=== PATIENT | male | born 1970 | race Caucasian/White ===

== ENCOUNTER → 2024-05-07 07:29 | Outpatient (REF) | payer BC, SELFPAY | LOC: EMG 07:29 | PROVIDERS: ATTENDING PHYSICIAN Podiatrist Foot & Ankle Surgery; FAMILY PHYSICIAN Family Medicine | DX: E11.9 Type 2 diabetes mellitus without complications (principal); M79.2 Neuralgia and neuritis, unspecified; R20.0 Anesthesia of skin | CPT/HCPCS: 95886; 95911 ==

== ENCOUNTER 2025-03-07 11:18 | Emergency (ER) | payer BC, SELFPAY ==
[2025-03-07 11:24] VITALS: BP 141/94
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
[2025-03-07 12:46] VITALS: BMI 36.0
--- NOTE | 2025-03-07 12:51 | EDRN ---
Jabari BERNAL in room w/pt.
[2025-03-07 13:27] VITALS: BP 115/79
[2025-03-07] MEDS: ADACEL 0.5 ML IM (13:34)
[2025-03-07] MEDS: PERCOCET 5/325 1 TABLET PO (13:35)
--- NOTE | 2025-03-07 14:15 | EDRN ---
Jabari BERNAL in room w/ pt.
--- NOTE | 2025-03-07 14:20 | EDRN ---
Jabari BERNAL was in room at this time and cleansed and dressed all wounds then discharged pt.
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
== END 2025-03-07 14:45 | disposition home or self-care (01) ==
LOC: EMR 11:18
PROVIDERS: EMERGENCY PHYSICIAN Emergency Medicine; FAMILY PHYSICIAN Family Medicine
DX: T22.212A Burn of second degree of left forearm, initial encounter (principal); T20.16XA Burn of first degree of forehead and cheek, initial encounter; T31.0 Burns involving less than 10% of body surface; X02.8XXA Other exposure to controlled fire in building or structure, initial encounter; S80.811A Abrasion, right lower leg, initial encounter; W19.XXXA Unspecified fall, initial encounter; I10 Essential (primary) hypertension; Z86.718 Personal history of other venous thrombosis and embolism; Z23 Encounter for immunization
CPT/HCPCS: 16020; 90471; 99282; 90715